=== PATIENT | female | born 1955 | race African-American/Black ===

== ENCOUNTER 2020-08-25 13:17 | Emergency (ER) | payer MEDICARE, MEDICAID ==
[~2020-08-25] VITALS: Ht 157.5 cm; Wt 55.0 kg
[2020-08-25] MEDS ORDERED: ALBUTEROL (0.083%) 2.5MG/3ML NEB HHN STA (14:16)
[2020-08-25] MEDS ORDERED: IPRATROPIUM BROMIDE (0.02%) 0.5MG/2.5ML NEB HHN STA (14:16)
[2020-08-25 14:43] LABS: CHLORIDE 100 mEq/L (98-107)
[2020-08-25 14:45] LABS: PROTHROMBIN TIME 10.8 sec (9.6-11.0)
[2020-08-25 14:47] LABS: HEMOGLOBIN. 10.2 g/dL (12.0-16.0); MEAN CORPUSCULAR HEMOGLOBIN 30.9 pg (28.0-32.0); MEAN CORPUSCULAR VOLUME 90.8 fL (81.0-99.0); MEAN PLATELET VOLUME 7.7 fl (7.4-10.4); PLATELET 179 x1000/uL (130-400); RED BLOOD CELL COUNT 3.31 mill/uL (4.2-5.4); RED CELL DISTRIBUTION WIDTH 17.7 % (11.6-14.6)
[2020-08-25] MEDS ORDERED: PIPERACILLIN/TAZ 3.375G PREMIX 50 ML IV ONE (15:00)
[2020-08-25 15:36] LABS: PLATELET ESTIMATE NORMAL
[2020-08-25] MEDS ORDERED: LEVOFLOXACIN 250MG PREMIX 50 ML IV ONE (15:45)
[2020-08-25 15:50] VITALS: BP 170/79
== END 2020-08-25 17:53 | disposition left against medical advice (07) ==
LOC: ER 13:17 → EDBEDREQ 14:32 → ER 17:53 → ENRESERV 19:22 → CANRESERV 19:22 → CANBEDREQ 19:25
DX: T17.998A Other foreign object in respiratory tract, part unspecified causing other injury, initial encounter (principal); J96.11 Chronic respiratory failure with hypoxia; I12.0 Hypertensive chronic kidney disease with stage 5 chronic kidney disease or end stage renal disease; N18.6 End stage renal disease; E87.8 Other disorders of electrolyte and fluid balance, not elsewhere classified; E78.00 Pure hypercholesterolemia, unspecified; D64.9 Anemia, unspecified; Z99.2 Dependence on renal dialysis; Z98.890 Other specified postprocedural states; Z88.8 Allergy status to other drugs, medicaments and biological substances; Z88.6 Allergy status to analgesic agent; Z88.1 Allergy status to other antibiotic agents; X58.XXXA Exposure to other specified factors, initial encounter; Y93.89 Activity, other specified; Y92.89 Other specified places as the place of occurrence of the external cause; Y99.8 Other external cause status
CPT/HCPCS: 36415; 70360; 71045; 80053; 83605; 83690; 83880; 84145; 84484; 85025; 85610; 87040; 93005; 94640; 99291; J1956

== ENCOUNTER 2020-09-16 07:40 | Emergency (ER) | payer MEDICARE, MEDICAID ==
[~2020-09-16] VITALS: Ht 165.1 cm; Wt 68.0 kg
[2020-09-16 08:42] LABS: BASOPHILS % 0.2 % (0.0-2.0); EOSINOPHILS % 1.1 % (0.0-5.0); HEMATOCRIT. 27.7 % (36.0-48.0); HEMOGLOBIN. 9.1 g/dL (12.0-16.0); LYMPHOCYTES % 8.5 % (20.0-50.0); MEAN CORPUSCULAR HEMOGLOBIN 31.1 pg (28.0-32.0); MEAN CORPUSCULAR VOLUME 94.8 fL (81.0-99.0); MEAN PLATELET VOLUME 7.1 fl (7.4-10.4); MONOCYTES % 5.2 % (2.0-8.0); PLATELET 308 x1000/uL (130-400); RED BLOOD CELL COUNT 2.93 mill/uL (4.2-5.4); RED CELL DISTRIBUTION WIDTH 21.4 % (11.6-14.6)
[2020-09-16 08:50] LABS: CHLORIDE 100 mEq/L (98-107)
[2020-09-16] MEDS ORDERED: ENALAPRIL 2.5MG/2ML VIAL 2ML IV ONE (09:00)
[2020-09-16] MEDS ORDERED: LEVOFLOXACIN 750MG PREMIX 150 ML IV ONE (09:00)
[2020-09-16] MEDS ORDERED: FUROSEMIDE 40MG/4ML VIAL IVP ONE (09:00)
[2020-09-16] MEDS ORDERED: ENALAPRIL 1.25MG/ML VIAL 1ML IV SCH (09:30)
[2020-09-16 16:19] LABS: HEPATITIS B SURFACE ANTIGEN NEGATIVE
[2020-09-16 16:49] LABS: HEPATITIS A AB IGM NEGATIVE (NEGATIVE)
[2020-09-16 17:25] VITALS: BP 187/93
== END 2020-09-16 17:33 | disposition home or self-care (01) ==
LOC: ER 07:45 → CANBEDREQ 17:30 → ER 17:33
DX: J18.9 Pneumonia, unspecified organism (principal); Z91.15 Patient's noncompliance with renal dialysis; Z20.822 Contact with and (suspected) exposure to COVID-19; R00.0 Tachycardia, unspecified; I12.0 Hypertensive chronic kidney disease with stage 5 chronic kidney disease or end stage renal disease; E11.22 Type 2 diabetes mellitus with diabetic chronic kidney disease; E11.65 Type 2 diabetes mellitus with hyperglycemia; D72.829 Elevated white blood cell count, unspecified; E78.00 Pure hypercholesterolemia, unspecified; E87.1 Hypo-osmolality and hyponatremia; D64.9 Anemia, unspecified; N18.6 End stage renal disease; Z99.2 Dependence on renal dialysis; Z79.4 Long term (current) use of insulin; Z91.09 Other allergy status, other than to drugs and biological substances; Z88.8 Allergy status to other drugs, medicaments and biological substances; Z88.6 Allergy status to analgesic agent
CPT/HCPCS: 36415; 71045; 80053; 83880; 84484; 85025; 86705; 86709; 86803; 87340; 87635; 93005; 94660; 96365; 96375; 99291; C9803; J1940; J1956; J3490

== ENCOUNTER 2020-10-04 04:24 | Inpatient (IN) | payer MEDICARE, MEDICAID ==
[2020-10-04] VITALS (23 sets, daily range): BP systolic 133–178; BP diastolic 58–96
[~2020-10-04] VITALS: Ht 162.6 cm; Wt 43.7 kg
[2020-10-04] MEDS ORDERED: FUROSEMIDE 40MG/4ML VIAL IV ONE (04:30)
[2020-10-04] MEDS ORDERED: ASPIRIN 81MG TABLET PO ONE (04:30)
[2020-10-04 04:52] LABS: HEMATOCRIT. 26.9 % (36.0-48.0); HEMOGLOBIN. 8.7 g/dL (12.0-16.0); MEAN CORPUSCULAR HEMOGLOBIN 31.7 pg (28.0-32.0); MEAN CORPUSCULAR VOLUME 97.8 fL (81.0-99.0); PLATELET 223 x1000/uL (130-400); RED BLOOD CELL COUNT 2.75 mill/uL (4.2-5.4); RED CELL DISTRIBUTION WIDTH 22.3 % (11.6-14.6)
[2020-10-04 04:57] LABS: CHLORIDE 100 mEq/L (98-107)
[2020-10-04] MEDS ORDERED: NITROGLYCERIN 50MG PREMIX 250 ML IV ONE (05:00)
[2020-10-04 05:36] LABS: PLATELET ESTIMATE NORMAL
[2020-10-04] MEDS ORDERED: ZOLPIDEM TARTRATE 5MG TABLET PO PRN (07:15)
[2020-10-04] MEDS ORDERED: ACETAMINOPHEN 325MG TABLET PO PRN (07:15)
[2020-10-04] MEDS ORDERED: NITROGLYCERIN 0.4MG TABLET SL SL PRN (07:15)
[2020-10-04] MEDS ORDERED: IPRATROPIUM/ALBUTEROL 0.5-3(2.5)MG/3ML NEB NEB PRN (07:15)
[2020-10-04] MEDS ORDERED: DOCUSATE SODIUM 100MG CAPSULE PO PRN (07:15)
[2020-10-04] MEDS ORDERED: GUAIFENESIN 200MG/10ML SUGAR FREE UDC PO PRN (07:15)
[2020-10-04] MEDS ORDERED: TRAMADOL 50MG TABLET PO PRN (07:15)
[2020-10-04] MEDS ORDERED: ONDANSETRON HCL 4MG/2ML INJ IV PRN (07:15)
[2020-10-04] MEDS ORDERED: MAGNESIUM/ALUMINUM HYDROXIDE/SIMETHICONE 30ML UDC PO PRN (07:15)
[2020-10-04] MEDS ORDERED: ENOXAPARIN 40MG/0.4ML SYR SUBCUT SCH (07:15)
[2020-10-04] MEDS ORDERED: METOLAZONE 10MG TABLET PO SCH (07:30)
[2020-10-04 07:55] LABS: FOLIC ACID (FOLATE) SERUM >20 ng/mL ng/mL (>5.38)
[2020-10-04 08:07] LABS: VITAMIN B12 SERUM 1308 pg/mL (211-911)
[2020-10-04] MEDS: HYDRALAZINE HCL 50MG TABLET PO SCH ×3 (08:23→21:10)
[2020-10-04] MEDS: NITROGLYCERIN OINT 1GM/INCH UDPKT TD SCH ×3 (08:24→21:10)
[2020-10-04] MEDS ORDERED: METOPROLOL TARTRATE 25MG TABLET PO SCH (09:00)
[2020-10-04] MEDS ORDERED: ASPIRIN 325MG EC TABLET PO SCH (09:00)
[2020-10-04] MEDS ORDERED: CARVEDILOL 6.25 MG TABLET PO SCH (09:45)
[2020-10-04] MEDS ORDERED: NALOXONE HCL 0.4MG/ML VIAL IV PRN ×2 (09:45→10:00)
[2020-10-04] MEDS ORDERED: ENOXAPARIN 30MG/0.3ML SYR SUBCUT NR (10:15)
[2020-10-04] MEDS: AMLODIPINE 10MG TABLET PO SCH (11:34)
[2020-10-04] MEDS: FAMOTIDINE 20MG TABLET PO SCH (11:34)
[2020-10-04] MEDS: ZINC SULFATE 220 MG ( 50 ) CAPSULE PO SCH (11:34)
[2020-10-04] MEDS: ASCORBIC ACID 500 MG TABLET PO SCH ×2 (11:34→21:00)
[2020-10-04] MEDS: SPIRONOLACTONE 25MG TABLET PO SCH ×2 (11:35→21:00)
[2020-10-04] MEDS ORDERED: ISOSORBIDE DINITRATE 10MG TABLET PO SCH (13:00)
[2020-10-04] MEDS: CLONIDINE 0.1MG TABLET PO PRN (13:09)
[2020-10-04 15:13] LABS: CREATINE KINASE MB FRACTION 1.9 ng/mL (0.5-3.6)
[2020-10-04 15:31] LABS: HEPATITIS B SURFACE ANTIGEN NEGATIVE
[2020-10-04 16:01] LABS: HEPATITIS A AB IGM NEGATIVE (NEGATIVE)
[2020-10-04] MEDS: FUROSEMIDE 40MG/4ML VIAL IVP SCH (17:56)
[2020-10-04] MEDS: ISOSORBIDE DINITRATE 10MG TABLET PO SCH (17:56)
[2020-10-04] MEDS ORDERED: LEVOFLOXACIN 500MG TABLET PO SCH (18:00)
[2020-10-04] MEDS: PREDNISONE 10MG TABLET PO SCH (18:05)
[2020-10-04] MEDS: CARVEDILOL 12.5MG TABLET PO SCH (21:00)
[2020-10-04] MEDS ORDERED: EPOETIN ALFA-EPBX 10,000 UNIT/ML VIAL SUBCUT SCH (21:00)
[2020-10-04] MEDS ORDERED: MEROPENEM 1,000 MG in SODIUM CHLORIDE 0.9% 100 ML IV SCH (22:15)
[2020-10-04] MEDS: MEROPENEM 500MG in NORMAL SALINE 50ML IV SCH (23:31)
[2020-10-04] MEDS: ACETAMINOPHEN 325MG TABLET PO PRN (23:32)
[2020-10-04 23:59] LABS: CREATINE KINASE MB FRACTION 1.6 ng/mL (0.5-3.6)
[2020-10-05] VITALS (84 sets, daily range): BP systolic 103–194; BP diastolic 44–119
[2020-10-05] MEDS: LINEZOLID 600 MG PREMIX 300 ML IV SCH ×2 (00:08→08:24)
[2020-10-05] MEDS: CLONIDINE 0.1MG TABLET PO PRN (01:17)
[2020-10-05] MEDS: HYDRALAZINE HCL 50MG TABLET PO SCH ×3 (06:00→22:09)
[2020-10-05] MEDS: NITROGLYCERIN OINT 1GM/INCH UDPKT TD SCH ×3 (06:00→14:52)
[2020-10-05] MEDS: FUROSEMIDE 40MG/4ML VIAL IVP SCH (06:41)
[2020-10-05] MEDS: CARVEDILOL 12.5MG TABLET PO SCH ×2 (08:21→22:10)
[2020-10-05] MEDS: AMLODIPINE 10MG TABLET PO SCH (08:21)
[2020-10-05] MEDS: ISOSORBIDE DINITRATE 10MG TABLET PO SCH ×3 (08:24→16:39)
[2020-10-05] MEDS: FAMOTIDINE 20MG TABLET PO SCH (08:24)
[2020-10-05] MEDS: ZINC SULFATE 220 MG ( 50 ) CAPSULE PO SCH (08:24)
[2020-10-05] MEDS: PREDNISONE 10MG TABLET PO SCH (08:24)
[2020-10-05] MEDS: ASCORBIC ACID 500 MG TABLET PO SCH ×2 (08:32→22:10)
[2020-10-05 11:47] LABS: MEAN CORPUSCULAR HEMOGLOBIN 31.8 pg (28.0-32.0); MEAN CORPUSCULAR VOLUME 97.8 fL (81.0-99.0); MEAN PLATELET VOLUME 7.3 fl (7.4-10.4); PLATELET 138 x1000/uL (130-400); RED BLOOD CELL COUNT 2.14 mill/uL (4.2-5.4); RED CELL DISTRIBUTION WIDTH 21.1 % (11.6-14.6)
[2020-10-05 11:53] LABS: HEMOGLOBIN. 6.8 g/dL (12.0-16.0)
[2020-10-05 11:54] LABS: CHLORIDE 100 mEq/L (98-107)
[2020-10-05 12:00] LABS: PHOSPHORUS 1.8 mg/dL (2.5-4.9)
[2020-10-05] MEDS: ACETAMINOPHEN 325MG TABLET PO PRN ×2 (12:44→22:09)
[2020-10-05] MEDS ORDERED: GABAPENTIN 100MG CAPSULE PO NR ×2 (14:30→14:45)
[2020-10-05 14:51] LABS: PLATELET ESTIMATE NORMAL
[2020-10-05 16:23] LABS: HEPATITIS B SURFACE ANTIGEN NEGATIVE
[2020-10-05 16:53] LABS: HEPATITIS A AB IGM NEGATIVE (NEGATIVE)
[2020-10-05] MEDS ORDERED: ENOXAPARIN 30MG/0.3ML SYR SUBCUT SCH (21:00)
[2020-10-05] MEDS ORDERED: GABAPENTIN 100MG CAPSULE PO SCH (21:00)
[2020-10-05] MEDS: GABAPENTIN 100MG CAPSULE PO SCH (22:07)
[2020-10-06] VITALS: BP 150/70
[2020-10-06] MEDS: NITROGLYCERIN OINT 1GM/INCH UDPKT TD SCH ×4 (00:06→22:00)
[2020-10-06] MEDS: MEROPENEM 500MG in NORMAL SALINE 50ML IV SCH ×2 (00:07→20:39)
[2020-10-06] MEDS: LINEZOLID 600 MG PREMIX 300 ML IV SCH ×3 (00:07→22:40)
[2020-10-06 04:00] VITALS: BP 150/65
[2020-10-06] MEDS: HYDRALAZINE HCL 50MG TABLET PO SCH ×3 (05:00→22:00)
[2020-10-06 07:19] LABS: BASOPHILS % 0.5 % (0.0-2.0); HEMATOCRIT. 33.6 % (36.0-48.0); HEMOGLOBIN. 11.6 g/dL (12.0-16.0); MEAN CORPUSCULAR HEMOGLOBIN 31.8 pg (28.0-32.0); MEAN CORPUSCULAR VOLUME 91.7 fL (81.0-99.0); MEAN PLATELET VOLUME 7.8 fl (7.4-10.4); MONOCYTES % 8.1 % (2.0-8.0); NEUTROPHILS % 75.4 % (40.0-76.0); PLATELET 144 x1000/uL (130-400); RED BLOOD CELL COUNT 3.66 mill/uL (4.2-5.4); RED CELL DISTRIBUTION WIDTH 17.7 % (11.6-14.6)
[2020-10-06 08:00] VITALS: BP 167/77
[2020-10-06] MEDS: ZINC SULFATE 220 MG ( 50 ) CAPSULE PO SCH (09:27)
[2020-10-06] MEDS: ASCORBIC ACID 500 MG TABLET PO SCH ×2 (09:28→20:40)
[2020-10-06] MEDS: PREDNISONE 10MG TABLET PO SCH (09:28)
[2020-10-06] MEDS: GABAPENTIN 100MG CAPSULE PO SCH ×2 (09:28→20:40)
[2020-10-06] MEDS: AMLODIPINE 10MG TABLET PO SCH (09:28)
[2020-10-06] MEDS: FAMOTIDINE 20MG TABLET PO SCH (09:28)
[2020-10-06] MEDS: CARVEDILOL 12.5MG TABLET PO SCH ×2 (09:28→20:39)
[2020-10-06] MEDS ORDERED: ISOSORBIDE DINITRATE 20MG TABLET PO SCH (10:00)
[2020-10-06] MEDS: ACETAMINOPHEN 325MG TABLET PO PRN ×2 (10:11→22:41)
[2020-10-06 12:00] VITALS: BP 126/64
[2020-10-06 16:30] VITALS: BP 156/77
[2020-10-06 20:00] VITALS: BP 165/69
[2020-10-07] VITALS: BP 169/80
[2020-10-07 00:11] LABS: HEPATITIS B SURFACE ANTIGEN NEGATIVE
[2020-10-07 00:41] LABS: HEPATITIS A AB IGM NEGATIVE (NEGATIVE)
[2020-10-07] MEDS: CLONIDINE 0.1MG TABLET PO PRN (00:47)
[2020-10-07 04:00] VITALS: BP 156/63
[2020-10-07] MEDS: NITROGLYCERIN OINT 1GM/INCH UDPKT TD SCH ×2 (05:13→14:00)
[2020-10-07] MEDS: HYDRALAZINE HCL 50MG TABLET PO SCH ×2 (05:13→14:00)
[2020-10-07 08:00] VITALS: BP 168/67
[2020-10-07] MEDS: LINEZOLID 600 MG PREMIX 300 ML IV SCH (08:26)
[2020-10-07] MEDS: PREDNISONE 10MG TABLET PO SCH (10:15)
[2020-10-07] MEDS: GABAPENTIN 100MG CAPSULE PO SCH (10:15)
[2020-10-07] MEDS: CARVEDILOL 12.5MG TABLET PO SCH (10:16)
[2020-10-07] MEDS: ZINC SULFATE 220 MG ( 50 ) CAPSULE PO SCH (10:16)
[2020-10-07] MEDS: FAMOTIDINE 20MG TABLET PO SCH (10:16)
[2020-10-07] MEDS: ASCORBIC ACID 500 MG TABLET PO SCH (10:16)
[2020-10-07] MEDS: AMLODIPINE 10MG TABLET PO SCH (10:16)
[2020-10-07 12:00] VITALS: BP 156/54
[2020-10-07 13:30] VITALS: BP 156/54
[2020-10-07 16:00] VITALS: BP 130/57
== END 2020-10-07 19:43 | DRG 871 ==
LOC: ER 04:33 → MICUNO 05:37 → EDBEDREQ 05:39 → CANRESERV 08:44 → ENRESERV 08:44 → 7EST 10-05 22:25
PROVIDERS: ADMIT Internal Medicine; ATTEND Internal Medicine
PROC: 5A09357 Assistance with Respiratory Ventilation, Less than 24 Consecutive Hours, Continuous Positive Airway Pressure (ICD-10-PCS; 2020-10-04)
PROC: 5A1D70Z Performance of Urinary Filtration, Intermittent, Less than 6 Hours Per Day (ICD-10-PCS; 2020-10-04)
PROC: 30233N1 Transfusion of Nonautologous Red Blood Cells into Peripheral Vein, Percutaneous Approach (ICD-10-PCS; principal; 2020-10-05)
PROC: 5A1D70Z Performance of Urinary Filtration, Intermittent, Less than 6 Hours Per Day (ICD-10-PCS; 2020-10-05)
PROC: 5A1D70Z Performance of Urinary Filtration, Intermittent, Less than 6 Hours Per Day (ICD-10-PCS; 2020-10-06)
DX: A41.9 Sepsis, unspecified organism (principal); J96.01 Acute respiratory failure with hypoxia; I50.33 Acute on chronic diastolic (congestive) heart failure; N18.6 End stage renal disease; E43 Unspecified severe protein-calorie malnutrition; J18.9 Pneumonia, unspecified organism; G92 Toxic encephalopathy; E87.1 Hypo-osmolality and hyponatremia; I16.1 Hypertensive emergency; I13.2 Hypertensive heart and chronic kidney disease with heart failure and with stage 5 chronic kidney disease, or end stage renal disease; D62 Acute posthemorrhagic anemia; D63.8 Anemia in other chronic diseases classified elsewhere; I27.20 Pulmonary hypertension, unspecified; I73.9 Peripheral vascular disease, unspecified; J45.909 Unspecified asthma, uncomplicated; Z20.822 Contact with and (suspected) exposure to COVID-19; E78.5 Hyperlipidemia, unspecified; M32.9 Systemic lupus erythematosus, unspecified; I95.9 Hypotension, unspecified; M06.9 Rheumatoid arthritis, unspecified; K80.20 Calculus of gallbladder without cholecystitis without obstruction; I87.2 Venous insufficiency (chronic) (peripheral); Z89.421 Acquired absence of other right toe(s); Z91.041 Radiographic dye allergy status; Z87.01 Personal history of pneumonia (recurrent); Z79.52 Long term (current) use of systemic steroids; Z91.040 Latex allergy status; Z88.1 Allergy status to other antibiotic agents; Z99.2 Dependence on renal dialysis; Z88.8 Allergy status to other drugs, medicaments and biological substances
CPT/HCPCS: 36415; 71045; 76770; 80053; 80061; 82550; 82553; 82607; 82746; 83036; 83540; 83550; 83735; 83880; 84100; 84145; 84484; 85025; 86705; 86709; 86803; 86850; 86900; 86920; 87340; 87426; 93005; 93306; 93970; 94660; 99285; A6261; J0885; J1940; J2020; J2185; J3490; J7040; J7512; P9016